=== PATIENT | female | born 1960 | race Caucasian/White ===

== ENCOUNTER → 2018-04-25 | Outpatient (CLI) | payer BC ==
[2018-04-25 13:22] VITALS: BP 98/54; PULSE 70; RESP 16; TEMP 98.3; BMI 27.8
--- NOTE | 2018-04-25 14:41 | P.HPBAR ---
Bariatric H&P - History & Physicial H&P Date: 04/25/18 History & Physicial: Visit/CC: sleeve follow-up Patient initial contact: Initial weight: 130.635 kg Initial weight in pounds: 288.00 Height: 5 ft 5 in Initial BMI: 47.9 Last weight: Current weight: 75.75 kg Current weight in pounds: 167.00 Current BMI: 27.8 [place] body weight (based on NIH guidelines): 56.699 kg Excess body weight loss: 74.2% The patient is a 58 year-old F who presents for Bariatric Assessment. Patient presents today for sleeve gastrectomy follow-up. She had her gastric sleeve and 2014. She has lost approximately 150 pounds total. She's had some minimal GERD. Past Medical History Past Medical History: No Reported History History of Any Multi-Drug Resistant Organisms: None Reported Past Surgical History: Bariatric Surgery, Hysterectomy, Joint Replacement, Orthopedic Surgery, Tonsillectomy Additional Past Surgical History / Comment(s): sleeve gastrectomy 10-14 right rotator cuff 12-18 right knee replacement x 2 Past Anesthesia/Blood Transfusion Reactions: Postoperative Nausea & Vomiting ( PONV) Smoking Status: Never smoker Surgical - Exam Vital Signs Temp Pulse Resp BP 98.3 F 70 16 98/54 04/25/18 13:10 04/25/18 13:10 04/25/18 13:10 04/25/18 13:10 - General well developed, well nourished, no distress - Eyes PERRL - ENT normal pinna - Neck no masses - Respiratory normal expansion - Cardiovascular Rhythm: regular - Abdomen Abdomen: soft, non tender Bariatric Assessment & Plan Plan: Improved morbid obesity. Patient's BMI is now 27. Her GERD is minimal elevated observed. She'll follow-up in 3 months. Bariatric Checklist Checklist: Plan: Checklist: EGD: 1. Hiatal hernia: 2. H. Pylori: HgbA1c: Vitamin D: Smoking: Never smoker Primary care physician referral: Psychiatry clearance: Cardiology clearance: Sleep study: Diet journal: VTE risk score: VTE risk level: Rehab needs at discharge:
== END | disposition home or self-care (01) ==
LOC: BARWHC3 12:31
PROVIDERS: ATTEND Surgery
DX: Z48.815 Encounter for surgical aftercare following surgery on the digestive system (principal); E66.01 Morbid (severe) obesity due to excess calories; K21.9 Gastro-esophageal reflux disease without esophagitis; Z68.27 Body mass index [BMI] 27.0-27.9, adult; Z98.84 Bariatric surgery status
CPT/HCPCS: 99211